=== PATIENT | male | born 1955 | race Caucasian/White ===

== ENCOUNTER 2021-04-01 18:50 | Inpatient (IN) ==
[2021-04-01] MEDS ORDERED: Isovue-370 500 ML BOTTLE IVP ONE (18:59)
[2021-04-01 19:54] LABS: Basophils # 0.1 K/mcL (0.0-0.2); Basophils % 1.1 %; Eosinophils % 0.4 %; Hematocrit 42.4 % (37.5-50.1); Hemoglobin 14.8 g/dL (12.9-16.9); Immature Granulocytes % 4.5 % (0-4); Lymphocytes # 1.3 K/mcL (0.6-4.6); Lymphocytes % 12.2 %; Mean Corpuscular HGB Conc 34.9 g/dL (31.6-35.5); Mean Corpuscular Hemoglobin 29.2 pg (28.0-33.3); Mean Corpuscular Volume 83.6 fL (83.0-100.0); Mean Platelet Volume 10.4 fL (9.4-12.4); Monocytes # 1.1 K/mcL (0.0-1.3); Monocytes % 10.7 %; Platelet Count 281 K/mcL (140-400); Red Blood Count 5.07 M/mcL (4.19-5.50); Red Cell Distribution Width 12.3 % (11.5-14.5); Segmented Neutrophils % 71.1 %
[2021-04-01 19:55] LABS: Neutrophils # 7.5 K/mcL (1.6-8.9); White Blood Count 10.5 K/mcL (4.3-11.1)
[2021-04-01 20:04] LABS: Fibrinogen 479 mg/dL (169-393)
[2021-04-01 20:15] LABS: D-Dimer 13850 ng/mLFEU (0-500)
[2021-04-01 20:16] LABS: Alanine Aminotransferase 32 Units/L (7-52); Albumin 3.8 g/dL (3.5-5.7); Albumin/Globulin Ratio 1.2 (1.1-2.2); Alkaline Phosphatase 75 Units/L (34-104); Aspartate Amino Transferase 48 Units/L (13-39); BUN/Creatinine Ratio 21 (6-26); Bilirubin,Direct 0.4 mg/dL (0.0-0.2); Bilirubin,Indirect 1.1 mg/dL (0.0-1.0); Bilirubin,Total 1.5 mg/dL (0.3-1.0); Blood Urea Nitrogen 17 mg/dL (8-23); Calcium 9.3 mg/dL (8.6-10.3); Carbon Dioxide 24 mEq/L (23-29); Chloride 100 mEq/L (98-107); Globulin 3.3 g/dL (2.4-3.5); Glucose 252 mg/dL (70-105); Lactate Dehydrogenase 468 Units/L (140-271); Osmolality,Calculated 296 (280-300); Potassium 3.1 mEq/L (3.5-5.1); Sodium 138 mEq/L (136-145); Total Protein 7.1 g/dL (6.4-8.9); eGFR For African Americans > 60 (> 60); eGFR For Non-African Americans > 60 (> 60)
[2021-04-01 20:33] LABS: Ferritin 888 ng/mL (20-250)
[2021-04-01 21:03] LABS: Troponin I 1.26 ng/mL (< 0.04)
[2021-04-01] MEDS ORDERED: *HR* Heparin 5,000 UNIT/ML VIAL IVP ONE (23:03)
[2021-04-01] MEDS ORDERED: *HR* Heparin 5,000 UNIT/ML VIAL IVP PRN ×2 (23:03)
[2021-04-01] MEDS ORDERED: *HR* Promethazine 25 MG/ML VIAL IM PRN (23:20)
[2021-04-01] MEDS ORDERED: Ondansetron 4 MG/2 ML VIAL IVP PRN (23:20)
[2021-04-01] MEDS ORDERED: Acetaminophen 325 MG TABLET PO PRN (23:20)
[2021-04-01] MEDS ORDERED: Naloxone 0.4 MG/ML INJ IVP PRN (23:20)
[2021-04-01] MEDS ORDERED: Remdesivir 200 MG in 0.9 % Sodium Chloride 100 ML IVPB ONE (23:23)
[2021-04-01] MEDS ORDERED: Perflutren Lipid Microsphere 1.3 ML in 0.9 % Sodium Chloride 8.7 ML IVP PRN (23:27)
[2021-04-01] MEDS: Heparin 25,000UNIT/250ML 1/2NS 25,000 UNIT/250 ML IV.SOLN IVC SCH (23:51)
[2021-04-02 00:21] LABS: INR 1.2; Prothrombin Time 13.9 Seconds (9.4-12.1)
[2021-04-02 00:24] LABS: Heparin anti-factor XA UFH < 0.04 IU/mL (0.30-0.70)
[2021-04-02 05:39] LABS: Basophils # 0.1 K/mcL (0.0-0.2); Basophils % 0.8 %; Eosinophils % 0.4 %; Hematocrit 40.5 % (37.5-50.1); Hemoglobin 14.3 g/dL (12.9-16.9); Immature Granulocytes % 4.3 % (0-4); Lymphocytes # 1.2 K/mcL (0.6-4.6); Lymphocytes % 10.6 %; Mean Corpuscular HGB Conc 35.3 g/dL (31.6-35.5); Mean Corpuscular Hemoglobin 29.7 pg (28.0-33.3); Mean Corpuscular Volume 84.2 fL (83.0-100.0); Mean Platelet Volume 10.1 fL (9.4-12.4); Monocytes # 1.2 K/mcL (0.0-1.3); Monocytes % 10.8 %; Neutrophils # 8.3 K/mcL (1.6-8.9); Platelet Count 267 K/mcL (140-400); Red Blood Count 4.81 M/mcL (4.19-5.50); Red Cell Distribution Width 12.2 % (11.5-14.5); Segmented Neutrophils % 73.1 %; White Blood Count 11.4 K/mcL (4.3-11.1)
[2021-04-02 05:45] LABS: Fibrinogen 441 mg/dL (169-393)
[2021-04-02 05:54] LABS: D-Dimer 23001 ng/mLFEU (0-500)
[2021-04-02 06:07] LABS: Alanine Aminotransferase 32 Units/L (7-52); Albumin 3.6 g/dL (3.5-5.7); Albumin/Globulin Ratio 1.2 (1.1-2.2); Alkaline Phosphatase 71 Units/L (34-104); Aspartate Amino Transferase 59 Units/L (13-39); BUN/Creatinine Ratio 25 (6-26); Bilirubin,Direct 0.4 mg/dL (0.0-0.2); Bilirubin,Indirect 1.1 mg/dL (0.0-1.0); Bilirubin,Total 1.5 mg/dL (0.3-1.0); Blood Urea Nitrogen 16 mg/dL (8-23); C-Reactive Protein 73 mg/L (Less than 10); Calcium 8.7 mg/dL (8.6-10.3); Carbon Dioxide 21 mEq/L (23-29); Chloride 104 mEq/L (98-107); Globulin 3.1 g/dL (2.4-3.5); Glucose 191 mg/dL (70-105); Lactate Dehydrogenase 502 Units/L (140-271); Osmolality,Calculated 292 (280-300); Phosphorous 3.2 mg/dL (2.7-4.5); Potassium 3.2 mEq/L (3.5-5.1); Sodium 138 mEq/L (136-145); Total Protein 6.7 g/dL (6.4-8.9); eGFR For African Americans > 60 (> 60); eGFR For Non-African Americans > 60 (> 60)
[2021-04-02 06:13] LABS: Ferritin 890 ng/mL (20-250)
[2021-04-02] MEDS: Aspirin Enteric Coated 81 MG Tablet PO SCH (08:06)
[2021-04-02] MEDS ORDERED: Dexamethasone Sodium Phos/PF 10 MG/ML VIAL IVP SCH (09:00)
[2021-04-02 10:23] LABS: Estimated Average Glucose 154 mg/dl
[2021-04-02 12:31] LABS: ABG Base Excess 0 mEq/L (-2 to 3); ABG HCO3 23 mEq/L (21-27); ABG Oxygen Saturation 95 % (95-98); ABG PCO2 32 mmHg (35-45); ABG PH 7.47 pH Units (7.32-7.45); ABG PO2 67 mmHg (85-104); ABG TCO2 24 mEq/L (20-26)
[2021-04-02] MEDS: Ipratropium 1 PUFF INHALER IH SCH ×2 (15:05→20:00)
[2021-04-02 15:12] LABS: ABG Base Excess 0 mEq/L (-2 to 3); ABG HCO3 23 mEq/L (21-27); ABG Oxygen Saturation 91 % (95-98); ABG PCO2 32 mmHg (35-45); ABG PH 7.47 pH Units (7.32-7.45); ABG PO2 56 mmHg (85-104); ABG TCO2 24 mEq/L (20-26)
[2021-04-02] MEDS ORDERED: Dexamethasone Sodium Phos/PF 10 MG/ML VIAL IVP ONE (15:56)
[2021-04-02] MEDS ORDERED: TOCILIZUMAB 810 MG in 0.9 % Sodium Chloride 95.5 ML IVPB ONE (16:00)
[2021-04-02] MEDS: *HR* HYDROcodone/Acet 5/325 mg TABLET PO PRN (20:26)
[2021-04-02] MEDS: Heparin 25,000UNIT/250ML 1/2NS 25,000 UNIT/250 ML IV.SOLN IVC SCH (20:26)
[2021-04-02] MEDS: BuPROPion SR (12 HR) 150 MG TABLET PO SCH (20:26)
[2021-04-02] MEDS: Melatonin 3 MG TABLET PO PRN (20:26)
[2021-04-03] MEDS: Ipratropium 1 PUFF INHALER IH SCH ×6 (00:11→20:23)
[2021-04-03] MEDS: Remdesivir 100 MG in 0.9 % Sodium Chloride 100 ML IVPB SCH ×2 (01:05→23:39)
[2021-04-03 06:19] LABS: Hemoglobin 13.3 g/dL (12.9-16.9); Mean Corpuscular HGB Conc 34.1 g/dL (31.6-35.5); Mean Corpuscular Hemoglobin 29.2 pg (28.0-33.3); Mean Corpuscular Volume 85.5 fL (83.0-100.0); Mean Platelet Volume 10.8 fL (9.4-12.4); Platelet Count 311 K/mcL (140-400); Red Blood Count 4.56 M/mcL (4.19-5.50); Red Cell Distribution Width 12.5 % (11.5-14.5); White Blood Count 10.1 K/mcL (4.3-11.1)
[2021-04-03 06:40] LABS: Albumin 3.6 g/dL (3.5-5.7); Albumin/Globulin Ratio 1.3 (1.1-2.2); Bilirubin,Direct 0.3 mg/dL (0.0-0.2); Bilirubin,Indirect 0.8 mg/dL (0.0-1.0); Bilirubin,Total 1.1 mg/dL (0.3-1.0); Globulin 2.8 g/dL (2.4-3.5); Total Protein 6.4 g/dL (6.4-8.9)
[2021-04-03 06:41] LABS: BUN/Creatinine Ratio 39 (6-26); Blood Urea Nitrogen 27 mg/dL (8-23); Calcium 9.1 mg/dL (8.6-10.3); Carbon Dioxide 24 mEq/L (23-29); Chloride 104 mEq/L (98-107); Glucose 226 mg/dL (70-105); Osmolality,Calculated 298 (280-300); Potassium 3.7 mEq/L (3.5-5.1); Sodium 138 mEq/L (136-145); eGFR For African Americans > 60 (> 60); eGFR For Non-African Americans > 60 (> 60)
[2021-04-03 06:50] LABS: Anisocytosis 1+ (Not Present); Lymphocytes # 1.6 K/mcL (0.6-4.6); Monocytes # 0.6 K/mcL (0.0-1.3); Neutrophils # 7.3 K/mcL (1.6-8.9); Platelet Estimate Normal (Normal); Poikilocytosis 1+ (Not Present); Reactive Lymphocytes Present (Not Present); Smudge Cells Present (Not Present)
[2021-04-03] MEDS: Aspirin Enteric Coated 81 MG Tablet PO SCH (08:13)
[2021-04-03] MEDS: BuPROPion SR (12 HR) 150 MG TABLET PO SCH ×2 (08:13→23:37)
[2021-04-03] MEDS: Cholecalciferol (D-3) 1,000 UNIT (25MCG) TABLET PO SCH ×2 (08:15→08:16)
[2021-04-03] MEDS: Dexamethasone Sodium Phos/PF 10 MG/ML VIAL IVP SCH (08:17)
[2021-04-03] MEDS: Heparin 25,000UNIT/250ML 1/2NS 25,000 UNIT/250 ML IV.SOLN IVC SCH (14:08)
[2021-04-03 17:59] LABS: C-Reactive Protein 85 mg/L (Less than 10)
[2021-04-04 02:50] LABS: Hematocrit 37.4 % (37.5-50.1); Hemoglobin 13.2 g/dL (12.9-16.9); Mean Corpuscular HGB Conc 35.3 g/dL (31.6-35.5); Mean Corpuscular Hemoglobin 29.9 pg (28.0-33.3); Mean Corpuscular Volume 84.8 fL (83.0-100.0); Mean Platelet Volume 10.5 fL (9.4-12.4); Platelet Count 347 K/mcL (140-400); Red Blood Count 4.41 M/mcL (4.19-5.50); Red Cell Distribution Width 12.5 % (11.5-14.5); White Blood Count 13.6 K/mcL (4.3-11.1)
[2021-04-04] MEDS: Ipratropium 1 PUFF INHALER IH SCH ×6 (02:54→20:29)
[2021-04-04 03:10] LABS: Albumin 3.3 g/dL (3.5-5.7); Albumin/Globulin Ratio 1.2 (1.1-2.2); Bilirubin,Direct 0.2 mg/dL (0.0-0.2); Bilirubin,Indirect 0.4 mg/dL (0.0-1.0); Bilirubin,Total 0.6 mg/dL (0.3-1.0); Globulin 2.8 g/dL (2.4-3.5); Total Protein 6.1 g/dL (6.4-8.9)
[2021-04-04] MEDS: *HR* Enoxaparin 40 MG/0.4 ML SYRINGE SQ SCH (06:00)
[2021-04-04] MEDS: Cholecalciferol (D-3) 1,000 UNIT (25MCG) TABLET PO SCH (07:52)
[2021-04-04] MEDS: Aspirin Enteric Coated 81 MG Tablet PO SCH (07:53)
[2021-04-04] MEDS: BuPROPion SR (12 HR) 150 MG TABLET PO SCH ×2 (07:53→22:22)
[2021-04-04] MEDS: Dexamethasone Sodium Phos/PF 10 MG/ML VIAL IVP SCH (15:58)
[2021-04-04] MEDS: Remdesivir 100 MG in 0.9 % Sodium Chloride 100 ML IVPB SCH (22:23)
[2021-04-05] MEDS: Ipratropium 1 PUFF INHALER IH SCH ×7 (01:12→23:21)
[2021-04-05] MEDS: *HR* Enoxaparin 40 MG/0.4 ML SYRINGE SQ SCH (06:57)
[2021-04-05 08:00] LABS: Albumin 3.4 g/dL (3.5-5.7); Albumin/Globulin Ratio 1.5 (1.1-2.2); Bilirubin,Direct 0.3 mg/dL (0.0-0.2); Bilirubin,Indirect 0.8 mg/dL (0.0-1.0); Bilirubin,Total 1.1 mg/dL (0.3-1.0); Globulin 2.3 g/dL (2.4-3.5); Total Protein 5.7 g/dL (6.4-8.9)
[2021-04-05 08:10] LABS: Blood Urea Nitrogen 23 mg/dL (8-23); Calcium 8.5 mg/dL (8.6-10.3); Carbon Dioxide 25 mEq/L (23-29); Chloride 105 mEq/L (98-107); Glucose 182 mg/dL (70-105); Lactate Dehydrogenase 455 Units/L (140-271); Osmolality,Calculated 296 (280-300); Potassium 3.9 mEq/L (3.5-5.1); Sodium 139 mEq/L (136-145)
[2021-04-05 08:20] LABS: Ferritin 1157 ng/mL (20-250)
[2021-04-05 08:26] LABS: Basophils % 0.6 %; Eosinophils # 0.3 K/mcL (0.0-0.6); Eosinophils % 4.5 %; Hematocrit 41.5 % (37.5-50.1); Hemoglobin 14.3 g/dL (12.9-16.9); Immature Granulocytes % 2.1 % (0-4); Lymphocytes # 0.8 K/mcL (0.6-4.6); Lymphocytes % 11.4 %; Mean Corpuscular HGB Conc 34.5 g/dL (31.6-35.5); Mean Corpuscular Hemoglobin 29.5 pg (28.0-33.3); Mean Corpuscular Volume 85.6 fL (83.0-100.0); Mean Platelet Volume 10.5 fL (9.4-12.4); Monocytes # 0.6 K/mcL (0.0-1.3); Monocytes % 9.4 %; Neutrophils # 4.9 K/mcL (1.6-8.9); Platelet Count 308 K/mcL (140-400); Red Blood Count 4.85 M/mcL (4.19-5.50); Red Cell Distribution Width 12.9 % (11.5-14.5); White Blood Count 6.8 K/mcL (4.3-11.1)
[2021-04-05 08:34] LABS: Fibrinogen 157 mg/dL (169-393)
[2021-04-05 08:40] LABS: BUN/Creatinine Ratio 29 (6-26); C-Reactive Protein 11 mg/L (Less than 10); eGFR For African Americans > 60 (> 60); eGFR For Non-African Americans > 60 (> 60)
[2021-04-05 09:24] LABS: D-Dimer 46998 ng/mLFEU (0-500)
[2021-04-05] MEDS: BuPROPion SR (12 HR) 150 MG TABLET PO SCH ×2 (10:37→22:22)
[2021-04-05] MEDS: Aspirin Enteric Coated 81 MG Tablet PO SCH (10:37)
[2021-04-05] MEDS: Cholecalciferol (D-3) 1,000 UNIT (25MCG) TABLET PO SCH (10:43)
[2021-04-05] MEDS: Dexamethasone Sodium Phos/PF 10 MG/ML VIAL IVP SCH (13:10)
[2021-04-05] MEDS ORDERED: *HR* Enoxaparin 40 MG/0.4 ML SYRINGE SQ ONE (13:20)
[2021-04-05] MEDS ORDERED: Isovue-370 500 ML BOTTLE IVP ONE (13:21)
[2021-04-05] MEDS: Benzonatate 100 MG CAPSULE PO PRN (22:23)
[2021-04-05] MEDS: Melatonin 3 MG TABLET PO PRN (22:23)
[2021-04-05] MEDS: *HR* Enoxaparin 80 MG/0.8 ML SYRINGE SQ SCH (22:24)
[2021-04-06] MEDS: Remdesivir 100 MG in 0.9 % Sodium Chloride 100 ML IVPB SCH (01:27)
[2021-04-06] MEDS: Ipratropium 1 PUFF INHALER IH SCH ×6 (03:49→23:42)
[2021-04-06 06:39] LABS: Basophils # 0.1 K/mcL (0.0-0.2); Basophils % 0.4 %; Eosinophils % 0.3 %; Hematocrit 44.3 % (37.5-50.1); Immature Granulocytes % 1.3 % (0-4); Lymphocytes % 8.7 %; Mean Corpuscular HGB Conc 33.9 g/dL (31.6-35.5); Mean Corpuscular Hemoglobin 29.4 pg (28.0-33.3); Mean Corpuscular Volume 86.7 fL (83.0-100.0); Mean Platelet Volume 10.3 fL (9.4-12.4); Monocytes # 0.9 K/mcL (0.0-1.3); Monocytes % 7.8 %; Neutrophils # 9.7 K/mcL (1.6-8.9); Platelet Count 327 K/mcL (140-400); Red Blood Count 5.11 M/mcL (4.19-5.50); Segmented Neutrophils % 81.5 %
[2021-04-06 06:40] LABS: White Blood Count 11.9 K/mcL (4.3-11.1)
[2021-04-06 06:59] LABS: Alanine Aminotransferase 27 Units/L (7-52); Albumin/Globulin Ratio 1.6 (1.1-2.2); Alkaline Phosphatase 84 Units/L (34-104); Aspartate Amino Transferase 39 Units/L (13-39); BUN/Creatinine Ratio 27 (6-26); Bilirubin,Direct 0.4 mg/dL (0.0-0.2); Bilirubin,Total 1.4 mg/dL (0.3-1.0); Blood Urea Nitrogen 24 mg/dL (8-23); Calcium 9.5 mg/dL (8.6-10.3); Carbon Dioxide 26 mEq/L (23-29); Chloride 102 mEq/L (98-107); Globulin 2.5 g/dL (2.4-3.5); Glucose 219 mg/dL (70-105); Osmolality,Calculated 299 (280-300); Potassium 4.1 mEq/L (3.5-5.1); Sodium 139 mEq/L (136-145); Total Protein 6.5 g/dL (6.4-8.9); eGFR For African Americans > 60 (> 60); eGFR For Non-African Americans > 60 (> 60)
[2021-04-06] MEDS: Cholecalciferol (D-3) 1,000 UNIT (25MCG) TABLET PO SCH (10:00)
[2021-04-06] MEDS: BuPROPion SR (12 HR) 150 MG TABLET PO SCH ×2 (10:01→20:39)
[2021-04-06] MEDS: Aspirin Enteric Coated 81 MG Tablet PO SCH (10:02)
[2021-04-06] MEDS: Dexamethasone Sodium Phos/PF 10 MG/ML VIAL IVP SCH (10:03)
[2021-04-06] MEDS: *HR* Enoxaparin 80 MG/0.8 ML SYRINGE SQ SCH (10:05)
[2021-04-06] MEDS: Benzonatate 100 MG CAPSULE PO PRN (20:39)
[2021-04-06] MEDS: Apixaban 5 MG TABLET PO SCH (20:39)
[2021-04-06] MEDS: Melatonin 3 MG TABLET PO PRN (20:39)
[2021-04-07] MEDS: Ipratropium 1 PUFF INHALER IH SCH ×6 (03:38→22:51)
[2021-04-07 06:49] LABS: Basophils # 0.1 K/mcL (0.0-0.2); Basophils % 0.5 %; Eosinophils # 0.1 K/mcL (0.0-0.6); Eosinophils % 0.7 %; Hematocrit 42.9 % (37.5-50.1); Hemoglobin 14.7 g/dL (12.9-16.9); Immature Granulocytes % 1.3 % (0-4); Lymphocytes # 1.5 K/mcL (0.6-4.6); Lymphocytes % 10.4 %; Mean Corpuscular HGB Conc 34.3 g/dL (31.6-35.5); Mean Corpuscular Hemoglobin 29.3 pg (28.0-33.3); Mean Corpuscular Volume 85.6 fL (83.0-100.0); Mean Platelet Volume 10.4 fL (9.4-12.4); Monocytes # 1.1 K/mcL (0.0-1.3); Monocytes % 7.2 %; Neutrophils # 11.6 K/mcL (1.6-8.9); Platelet Count 312 K/mcL (140-400); Red Blood Count 5.01 M/mcL (4.19-5.50); Segmented Neutrophils % 79.9 %; White Blood Count 14.6 K/mcL (4.3-11.1)
[2021-04-07 07:02] LABS: Fibrinogen 132 mg/dL (169-393)
[2021-04-07 07:09] LABS: BUN/Creatinine Ratio 34 (6-26); Blood Urea Nitrogen 30 mg/dL (8-23); Calcium 9.2 mg/dL (8.6-10.3); Carbon Dioxide 26 mEq/L (23-29); Chloride 103 mEq/L (98-107); Glucose 216 mg/dL (70-105); Lactate Dehydrogenase 448 Units/L (140-271); Osmolality,Calculated 297 (280-300); Sodium 137 mEq/L (136-145); eGFR For African Americans > 60 (> 60); eGFR For Non-African Americans > 60 (> 60)
[2021-04-07 07:10] LABS: D-Dimer 21110 ng/mLFEU (0-500)
[2021-04-07 07:27] LABS: Ferritin 1348 ng/mL (20-250)
[2021-04-07 08:30] LABS: C-Reactive Protein < 5 mg/L (Less than 10)
[2021-04-07] MEDS: Cholecalciferol (D-3) 1,000 UNIT (25MCG) TABLET PO SCH (09:35)
[2021-04-07] MEDS: Aspirin Enteric Coated 81 MG Tablet PO SCH (09:35)
[2021-04-07] MEDS: BuPROPion SR (12 HR) 150 MG TABLET PO SCH ×2 (09:36→21:45)
[2021-04-07] MEDS: Apixaban 5 MG TABLET PO SCH ×2 (09:36→21:45)
[2021-04-07] MEDS: Dexamethasone Sodium Phos/PF 10 MG/ML VIAL IVP SCH (10:27)
[2021-04-07] MEDS: Melatonin 3 MG TABLET PO PRN (21:46)
[2021-04-08 02:18] LABS: Basophils % 0.3 %; Eosinophils # 0.1 K/mcL (0.0-0.6); Eosinophils % 0.5 %; Hematocrit 44.1 % (37.5-50.1); Hemoglobin 15.1 g/dL (12.9-16.9); Lymphocytes # 1.7 K/mcL (0.6-4.6); Lymphocytes % 10.9 %; Mean Corpuscular HGB Conc 34.2 g/dL (31.6-35.5); Mean Corpuscular Hemoglobin 29.3 pg (28.0-33.3); Mean Corpuscular Volume 85.5 fL (83.0-100.0); Mean Platelet Volume 10.4 fL (9.4-12.4); Monocytes # 1.1 K/mcL (0.0-1.3); Monocytes % 7.2 %; Neutrophils # 12.2 K/mcL (1.6-8.9); Platelet Count 313 K/mcL (140-400); Red Blood Count 5.16 M/mcL (4.19-5.50); Segmented Neutrophils % 80.1 %; White Blood Count 15.2 K/mcL (4.3-11.1)
[2021-04-08 02:34] LABS: Alanine Aminotransferase 35 Units/L (7-52); Albumin 3.8 g/dL (3.5-5.7); Albumin/Globulin Ratio 1.4 (1.1-2.2); Alkaline Phosphatase 69 Units/L (34-104); Aspartate Amino Transferase 39 Units/L (13-39); BUN/Creatinine Ratio 30 (6-26); Blood Urea Nitrogen 29 mg/dL (8-23); Calcium 9.2 mg/dL (8.6-10.3); Carbon Dioxide 24 mEq/L (23-29); Chloride 102 mEq/L (98-107); Globulin 2.7 g/dL (2.4-3.5); Glucose 277 mg/dL (70-105); Osmolality,Calculated 298 (280-300); Potassium 4.5 mEq/L (3.5-5.1); Sodium 136 mEq/L (136-145); Total Protein 6.5 g/dL (6.4-8.9); eGFR For African Americans > 60 (> 60); eGFR For Non-African Americans > 60 (> 60)
[2021-04-08] MEDS: Ipratropium 1 PUFF INHALER IH SCH ×6 (04:38→23:34)
[2021-04-08] MEDS ORDERED: Dexamethasone Sodium Phos/PF 10 MG/ML VIAL IVP SCH (09:00)
[2021-04-08] MEDS: BuPROPion SR (12 HR) 150 MG TABLET PO SCH ×2 (09:46→23:04)
[2021-04-08] MEDS: Aspirin Enteric Coated 81 MG Tablet PO SCH (09:46)
[2021-04-08] MEDS: Cholecalciferol (D-3) 1,000 UNIT (25MCG) TABLET PO SCH (09:47)
[2021-04-08] MEDS: Apixaban 5 MG TABLET PO SCH ×2 (09:48→23:05)
[2021-04-08] MEDS: Dexamethasone Sodium Phos/PF 10 MG/ML VIAL IVP SCH (09:48)
[2021-04-08] MEDS: Furosemide 20 MG/2 ML VIAL IVP SCH (09:48)
[2021-04-09] MEDS: Ipratropium 1 PUFF INHALER IH SCH ×6 (03:28→23:24)
[2021-04-09 04:14] LABS: Basophils # 0.1 K/mcL (0.0-0.2); Basophils % 0.4 %; Eosinophils # 0.1 K/mcL (0.0-0.6); Eosinophils % 0.3 %; Hematocrit 48.6 % (37.5-50.1); Immature Granulocytes % 1.3 % (0-4); Lymphocytes # 2.6 K/mcL (0.6-4.6); Lymphocytes % 14.5 %; Mean Corpuscular HGB Conc 34.8 g/dL (31.6-35.5); Mean Corpuscular Hemoglobin 29.4 pg (28.0-33.3); Mean Corpuscular Volume 84.5 fL (83.0-100.0); Mean Platelet Volume 10.5 fL (9.4-12.4); Monocytes # 1.8 K/mcL (0.0-1.3); Monocytes % 9.8 %; Neutrophils # 13.4 K/mcL (1.6-8.9); Platelet Count 376 K/mcL (140-400); Red Blood Count 5.75 M/mcL (4.19-5.50); Red Cell Distribution Width 13.3 % (11.5-14.5); Segmented Neutrophils % 73.7 %; White Blood Count 18.1 K/mcL (4.3-11.1)
[2021-04-09 04:16] LABS: Hemoglobin 16.9 g/dL (12.9-16.9)
[2021-04-09 04:32] LABS: Fibrinogen 147 mg/dL (169-393)
[2021-04-09 04:33] LABS: D-Dimer 6785 ng/mLFEU (0-500)
[2021-04-09 04:36] LABS: Alanine Aminotransferase 44 Units/L (7-52); Albumin 4.2 g/dL (3.5-5.7); Albumin/Globulin Ratio 1.4 (1.1-2.2); Aspartate Amino Transferase 40 Units/L (13-39); BUN/Creatinine Ratio 45 (6-26); Bilirubin,Total 1.6 mg/dL (0.3-1.0); Blood Urea Nitrogen 40 mg/dL (8-23); C-Reactive Protein < 5 mg/L (Less than 10); Calcium 9.6 mg/dL (8.6-10.3); Carbon Dioxide 24 mEq/L (23-29); Chloride 101 mEq/L (98-107); Globulin 2.9 g/dL (2.4-3.5); Glucose 252 mg/dL (70-105); Lactate Dehydrogenase 415 Units/L (140-271); Osmolality,Calculated 306 (280-300); Potassium 4.2 mEq/L (3.5-5.1); Sodium 139 mEq/L (136-145); Total Protein 7.1 g/dL (6.4-8.9); eGFR For African Americans > 60 (> 60); eGFR For Non-African Americans > 60 (> 60)
[2021-04-09 04:41] LABS: Alkaline Phosphatase 72 Units/L (34-104)
[2021-04-09 05:06] LABS: Ferritin > 1500 ng/mL (20-250)
[2021-04-09] MEDS: BuPROPion SR (12 HR) 150 MG TABLET PO SCH ×2 (09:23→22:20)
[2021-04-09] MEDS: Apixaban 5 MG TABLET PO SCH ×2 (09:23→22:20)
[2021-04-09] MEDS: Cholecalciferol (D-3) 1,000 UNIT (25MCG) TABLET PO SCH (09:23)
[2021-04-09] MEDS: Furosemide 20 MG/2 ML VIAL IVP SCH (09:24)
[2021-04-09] MEDS: Dexamethasone Sodium Phos/PF 10 MG/ML VIAL IVP SCH (09:24)
[2021-04-10] MEDS: Ipratropium 1 PUFF INHALER IH SCH ×6 (04:23→23:49)
[2021-04-10 04:43] LABS: Basophils # 0.1 K/mcL (0.0-0.2); Basophils % 0.3 %; Eosinophils % 0.2 %; Hematocrit 50.5 % (37.5-50.1); Hemoglobin 17.7 g/dL (12.9-16.9); Immature Granulocytes % 1.9 % (0-4); Lymphocytes # 2.2 K/mcL (0.6-4.6); Lymphocytes % 13.9 %; Mean Corpuscular Hemoglobin 29.9 pg (28.0-33.3); Mean Corpuscular Volume 85.3 fL (83.0-100.0); Monocytes # 1.7 K/mcL (0.0-1.3); Monocytes % 10.7 %; Neutrophils # 11.7 K/mcL (1.6-8.9); Platelet Count 368 K/mcL (140-400); Red Blood Count 5.92 M/mcL (4.19-5.50); Red Cell Distribution Width 13.3 % (11.5-14.5)
[2021-04-10 04:53] LABS: Alanine Aminotransferase 38 Units/L (7-52); Albumin 4.4 g/dL (3.5-5.7); Albumin/Globulin Ratio 1.6 (1.1-2.2); Alkaline Phosphatase 73 Units/L (34-104); Aspartate Amino Transferase 28 Units/L (13-39); Bilirubin,Total 2.1 mg/dL (0.3-1.0); Carbon Dioxide 24 mEq/L (23-29); Chloride 100 mEq/L (98-107); Globulin 2.7 g/dL (2.4-3.5); Glucose 347 mg/dL (70-105); Potassium 4.6 mEq/L (3.5-5.1); Sodium 136 mEq/L (136-145); Total Protein 7.1 g/dL (6.4-8.9); eGFR For African Americans > 60 (> 60); eGFR For Non-African Americans > 60 (> 60)
[2021-04-10 05:02] LABS: BUN/Creatinine Ratio 56 (6-26); Blood Urea Nitrogen 59 mg/dL (8-23); Calcium 10.2 mg/dL (8.6-10.3); Osmolality,Calculated 312 (280-300)
[2021-04-10] MEDS: Cholecalciferol (D-3) 1,000 UNIT (25MCG) TABLET PO SCH (10:11)
[2021-04-10] MEDS: Apixaban 5 MG TABLET PO SCH ×2 (10:12→19:52)
[2021-04-10] MEDS: Dexamethasone Sodium Phos/PF 10 MG/ML VIAL IVP SCH (10:13)
[2021-04-10] MEDS: BuPROPion SR (12 HR) 150 MG TABLET PO SCH ×2 (10:13→19:51)
[2021-04-10] MEDS: Furosemide 20 MG/2 ML VIAL IVP SCH (10:13)
[2021-04-11] MEDS: Ipratropium 1 PUFF INHALER IH SCH ×6 (04:25→23:09)
[2021-04-11 05:02] LABS: Basophils % 0.2 %; Eosinophils % 0.2 %; Hematocrit 50.7 % (37.5-50.1); Hemoglobin 17.9 g/dL (12.9-16.9); Immature Granulocytes % 1.4 % (0-4); Lymphocytes % 11.6 %; Mean Corpuscular HGB Conc 35.3 g/dL (31.6-35.5); Mean Corpuscular Hemoglobin 29.9 pg (28.0-33.3); Mean Corpuscular Volume 84.8 fL (83.0-100.0); Monocytes # 1.7 K/mcL (0.0-1.3); Monocytes % 9.9 %; Neutrophils # 12.9 K/mcL (1.6-8.9); Platelet Count 398 K/mcL (140-400); Red Blood Count 5.98 M/mcL (4.19-5.50); Red Cell Distribution Width 13.3 % (11.5-14.5); Segmented Neutrophils % 76.7 %; White Blood Count 16.9 K/mcL (4.3-11.1)
[2021-04-11 05:18] LABS: Alanine Aminotransferase 30 Units/L (7-52); Albumin 4.4 g/dL (3.5-5.7); Albumin/Globulin Ratio 1.6 (1.1-2.2); Alkaline Phosphatase 72 Units/L (34-104); Aspartate Amino Transferase 20 Units/L (13-39); BUN/Creatinine Ratio 58 (6-26); Bilirubin,Total 2.8 mg/dL (0.3-1.0); Blood Urea Nitrogen 61 mg/dL (8-23); Calcium 10.4 mg/dL (8.6-10.3); Carbon Dioxide 25 mEq/L (23-29); Chloride 98 mEq/L (98-107); Globulin 2.7 g/dL (2.4-3.5); Glucose 353 mg/dL (70-105); Osmolality,Calculated 309 (280-300); Potassium 4.3 mEq/L (3.5-5.1); Sodium 134 mEq/L (136-145); Total Protein 7.1 g/dL (6.4-8.9); eGFR For African Americans > 60 (> 60); eGFR For Non-African Americans > 60 (> 60)
[2021-04-11] MEDS: Dexamethasone Sodium Phos/PF 10 MG/ML VIAL IVP SCH (08:30)
[2021-04-11] MEDS: Apixaban 5 MG TABLET PO SCH ×2 (08:31→20:34)
[2021-04-11] MEDS: BuPROPion SR (12 HR) 150 MG TABLET PO SCH ×2 (08:32→20:34)
[2021-04-11] MEDS: Cholecalciferol (D-3) 1,000 UNIT (25MCG) TABLET PO SCH (08:35)
[2021-04-12] MEDS: Ipratropium 1 PUFF INHALER IH SCH ×5 (04:11→20:23)
[2021-04-12 07:40] LABS: Basophils % 0.3 %; Eosinophils # 0.1 K/mcL (0.0-0.6); Eosinophils % 0.5 %; Hematocrit 48.8 % (37.5-50.1); Lymphocytes # 2.3 K/mcL (0.6-4.6); Lymphocytes % 15.4 %; Mean Corpuscular HGB Conc 34.8 g/dL (31.6-35.5); Mean Corpuscular Hemoglobin 29.7 pg (28.0-33.3); Mean Corpuscular Volume 85.2 fL (83.0-100.0); Monocytes # 1.3 K/mcL (0.0-1.3); Monocytes % 9.1 %; Neutrophils # 10.8 K/mcL (1.6-8.9); Platelet Count 360 K/mcL (140-400); Red Blood Count 5.73 M/mcL (4.19-5.50); Red Cell Distribution Width 13.2 % (11.5-14.5); Segmented Neutrophils % 73.7 %; White Blood Count 14.7 K/mcL (4.3-11.1)
[2021-04-12 07:48] LABS: Fibrinogen 150 mg/dL (169-393)
[2021-04-12 07:51] LABS: D-Dimer 3500 ng/mLFEU (0-500)
[2021-04-12 08:03] LABS: Alanine Aminotransferase 23 Units/L (7-52); Albumin 4.2 g/dL (3.5-5.7); Albumin/Globulin Ratio 1.7 (1.1-2.2); Alkaline Phosphatase 65 Units/L (34-104); Aspartate Amino Transferase 20 Units/L (13-39); BUN/Creatinine Ratio 58 (6-26); Bilirubin,Total 3.2 mg/dL (0.3-1.0); Blood Urea Nitrogen 54 mg/dL (8-23); Calcium 9.8 mg/dL (8.6-10.3); Carbon Dioxide 24 mEq/L (23-29); Chloride 99 mEq/L (98-107); Globulin 2.5 g/dL (2.4-3.5); Glucose 296 mg/dL (70-105); Osmolality,Calculated 304 (280-300); Sodium 134 mEq/L (136-145); Total Protein 6.7 g/dL (6.4-8.9); eGFR For African Americans > 60 (> 60); eGFR For Non-African Americans > 60 (> 60)
[2021-04-12 08:07] LABS: Lactate Dehydrogenase 315 Units/L (140-271)
[2021-04-12 08:40] LABS: Ferritin > 1500 ng/mL (20-250)
[2021-04-12] MEDS ORDERED: Dexamethasone Sodium Phos/PF 10 MG/ML VIAL IVP SCH (09:00)
[2021-04-12 09:28] LABS: C-Reactive Protein < 5 mg/L (Less than 10)
[2021-04-12] MEDS: Cholecalciferol (D-3) 1,000 UNIT (25MCG) TABLET PO SCH (09:55)
[2021-04-12] MEDS: Apixaban 5 MG TABLET PO SCH ×2 (09:55→19:45)
[2021-04-12] MEDS: BuPROPion SR (12 HR) 150 MG TABLET PO SCH ×2 (09:55→19:45)
[2021-04-13] MEDS: Ipratropium 1 PUFF INHALER IH SCH ×7 (00:18→22:59)
[2021-04-13 08:06] LABS: Basophils % 0.2 %; Eosinophils # 0.1 K/mcL (0.0-0.6); Eosinophils % 0.4 %; Hemoglobin 16.6 g/dL (12.9-16.9); Immature Granulocytes % 1.1 % (0-4); Lymphocytes # 1.7 K/mcL (0.6-4.6); Mean Corpuscular HGB Conc 35.3 g/dL (31.6-35.5); Mean Corpuscular Hemoglobin 29.8 pg (28.0-33.3); Mean Corpuscular Volume 84.4 fL (83.0-100.0); Mean Platelet Volume 11.2 fL (9.4-12.4); Monocytes # 1.6 K/mcL (0.0-1.3); Monocytes % 8.6 %; Neutrophils # 15.5 K/mcL (1.6-8.9); Platelet Count 325 K/mcL (140-400); Red Blood Count 5.57 M/mcL (4.19-5.50); Red Cell Distribution Width 13.2 % (11.5-14.5); Segmented Neutrophils % 80.7 %; White Blood Count 19.2 K/mcL (4.3-11.1)
[2021-04-13 08:25] LABS: Alanine Aminotransferase 24 Units/L (7-52); Albumin/Globulin Ratio 1.7 (1.1-2.2); Alkaline Phosphatase 62 Units/L (34-104); Aspartate Amino Transferase 20 Units/L (13-39); BUN/Creatinine Ratio 47 (6-26); Bilirubin,Total 2.6 mg/dL (0.3-1.0); Blood Urea Nitrogen 47 mg/dL (8-23); Calcium 9.5 mg/dL (8.6-10.3); Carbon Dioxide 22 mEq/L (23-29); Chloride 98 mEq/L (98-107); Globulin 2.3 g/dL (2.4-3.5); Glucose 385 mg/dL (70-105); Osmolality,Calculated 302 (280-300); Potassium 4.1 mEq/L (3.5-5.1); Sodium 132 mEq/L (136-145); Total Protein 6.3 g/dL (6.4-8.9); eGFR For African Americans > 60 (> 60); eGFR For Non-African Americans > 60 (> 60)
[2021-04-13] MEDS: BuPROPion SR (12 HR) 150 MG TABLET PO SCH ×2 (09:06→20:54)
[2021-04-13] MEDS: dexAMETHasone 4 MG TABLET PO SCH (09:07)
[2021-04-13] MEDS: Apixaban 5 MG TABLET PO SCH (09:07)
[2021-04-13] MEDS: Cholecalciferol (D-3) 1,000 UNIT (25MCG) TABLET PO SCH (09:08)
[2021-04-13] MEDS: *HR* HYDROcodone/Acet 5/325 mg TABLET PO PRN ×3 (09:09→21:04)
[2021-04-13] MEDS ORDERED: Apixaban 5 MG TABLET PO SCH (21:00)
[2021-04-13] MEDS: Melatonin 3 MG TABLET PO PRN (21:04)
[2021-04-14 00:49] LABS: Red Cell Distribution Width 13.2 % (11.5-14.5)
[2021-04-14 00:50] LABS: Hematocrit 46.5 % (37.5-50.1); Hemoglobin 16.6 g/dL (12.9-16.9); Mean Corpuscular HGB Conc 35.7 g/dL (31.6-35.5); Mean Corpuscular Hemoglobin 30.3 pg (28.0-33.3); Mean Corpuscular Volume 84.9 fL (83.0-100.0); Mean Platelet Volume 11.2 fL (9.4-12.4); Platelet Count 287 K/mcL (140-400); Red Blood Count 5.48 M/mcL (4.19-5.50)
[2021-04-14 00:56] LABS: White Blood Count 38.6 K/mcL (4.3-11.1)
[2021-04-14 01:13] LABS: Alanine Aminotransferase 23 Units/L (7-52); Albumin/Globulin Ratio 1.6 (1.1-2.2); Alkaline Phosphatase 73 Units/L (34-104); Aspartate Amino Transferase 21 Units/L (13-39); BUN/Creatinine Ratio 43 (6-26); Bilirubin,Total 3.4 mg/dL (0.3-1.0); Blood Urea Nitrogen 39 mg/dL (8-23); C-Reactive Protein < 5 mg/L (Less than 10); Calcium 9.5 mg/dL (8.6-10.3); Carbon Dioxide 22 mEq/L (23-29); Chloride 97 mEq/L (98-107); Globulin 2.5 g/dL (2.4-3.5); Glucose 324 mg/dL (70-105); Lactate Dehydrogenase 306 Units/L (140-271); Osmolality,Calculated 294 (280-300); Potassium 4.2 mEq/L (3.5-5.1); Sodium 131 mEq/L (136-145); Total Protein 6.5 g/dL (6.4-8.9); eGFR For African Americans > 60 (> 60); eGFR For Non-African Americans > 60 (> 60)
[2021-04-14] MEDS ORDERED: Morphine Sulfate 2 MG/ML SYRINGE IVP ONE ×2 (01:31→01:38)
[2021-04-14 01:34] LABS: Ferritin > 1500 ng/mL (20-250)
[2021-04-14] MEDS ORDERED: *HR* LORazepam 2 MG/ML VIAL IVP ONE (01:46)
[2021-04-14 01:47] LABS: Lymphocytes # 1.9 K/mcL (0.6-4.6); Monocytes # 0.4 K/mcL (0.0-1.3); Neutrophils # 36.3 K/mcL (1.6-8.9); Platelet Estimate Normal (Normal)
[2021-04-14] MEDS ORDERED: Isovue-370 500 ML BOTTLE IVP ONE (01:53)
[2021-04-14 02:18] LABS: ABG Base Excess -1 mEq/L (-2 to 3); ABG HCO3 22 mEq/L (21-27); ABG Oxygen Saturation 82 % (95-98); ABG PCO2 30 mmHg (35-45); ABG PH 7.46 pH Units (7.32-7.45); ABG PO2 43 mmHg (85-104); ABG TCO2 23 mEq/L (20-26); Blood Gas Modality BiLevel; Blood Gas Pressure Support 8 cm H2O
[2021-04-14] MEDS ORDERED: Dexamethasone Sodium Phos/PF 10 MG/ML VIAL IVP ONE (02:40)
[2021-04-14] MEDS ORDERED: Furosemide 20 MG/2 ML VIAL IVP ONE (02:40)
[2021-04-14 03:04] LABS: Fibrinogen 190 mg/dL (169-393)
[2021-04-14 03:23] LABS: D-Dimer 2168 ng/mLFEU (0-500)
[2021-04-14] MEDS: Ipratropium 1 PUFF INHALER IH SCH ×6 (03:59→23:24)
[2021-04-14] MEDS ORDERED: Perflutren Lipid Microsphere 1.3 ML in 0.9 % Sodium Chloride 8.7 ML IVP PRN (04:46)
[2021-04-14 05:31] LABS: Activated Partial Thrombo Time 26.7 Seconds (26.0-36.0)
[2021-04-14 05:33] LABS: INR 1.7; Prothrombin Time 19.4 Seconds (9.4-12.1)
[2021-04-14 06:02] LABS: Hemoglobin 16.8 g/dL (12.9-16.9)
[2021-04-14 06:03] LABS: Hematocrit 48.7 % (37.5-50.1); Mean Corpuscular HGB Conc 34.5 g/dL (31.6-35.5); Mean Corpuscular Hemoglobin 29.4 pg (28.0-33.3); Mean Corpuscular Volume 85.1 fL (83.0-100.0); Mean Platelet Volume 11.1 fL (9.4-12.4); Platelet Count 290 K/mcL (140-400); Red Blood Count 5.72 M/mcL (4.19-5.50); Red Cell Distribution Width 13.4 % (11.5-14.5)
[2021-04-14 06:10] LABS: White Blood Count 51.6 K/mcL (4.3-11.1)
[2021-04-14] MEDS: Piperacillin/Tazobactam 3.375 GM in 0.9 % Sodium Chloride Mini Bag 100 ML IVPB SCH ×3 (06:41→22:41)
[2021-04-14] MEDS ORDERED: Heparin 25,000UNIT/250ML 1/2NS 25,000 UNIT/250 ML IV.SOLN IVC SCH ×2 (06:45→09:00)
[2021-04-14 08:51] LABS: ABG Base Excess -2 mEq/L (-2 to 3); ABG HCO3 21 mEq/L (21-27); ABG Oxygen Saturation 91 % (95-98); ABG PCO2 32 mmHg (35-45); ABG PH 7.44 pH Units (7.32-7.45); ABG PO2 58 mmHg (85-104); ABG TCO2 22 mEq/L (20-26); Blood Gas Modality CPAP
[2021-04-14] MEDS ORDERED: *HR* Heparin 5,000 UNIT/ML VIAL IVP PRN ×2 (09:00)
[2021-04-14] MEDS ORDERED: *HR* Heparin 5,000 UNIT/ML VIAL IVP ONE (09:00)
[2021-04-14] MEDS: dexAMETHasone 4 MG TABLET PO SCH (09:15)
[2021-04-14] MEDS: BuPROPion SR (12 HR) 150 MG TABLET PO SCH (09:16)
[2021-04-14] MEDS: Cholecalciferol (D-3) 1,000 UNIT (25MCG) TABLET PO SCH (09:16)
[2021-04-14 09:57] LABS: Bilirubin,Urine Negative (Negative); Blood,Urine Small (Negative); Clarity,Urine Clear (Clear); Color,Urine Light-Yellow (Yellow); Glucose,Urine (UA) >=1000 mg/dL (Normal); Ketones,Urine 10 mg/dL (Negative); Leukocyte Esterase,Urine Negative (Negative); Mucus,Urine Few per lpf (None-Few); Nitrite,Urine Negative (Negative); PH,Urine 5.5 pH Units (5.0-8.0); Protein,Urine Negative (Neg-Trace); Specific Gravity,Urine > 1.030 (1.010-1.025); Urobilinogen,Urine Normal (Normal); WBC,Urine 0-3 per hpf (0-3)
[2021-04-14] MEDS: FentaNYL (PF) 1,000 MCG/100 ML IV.SOLN IVC SCH ×3 (11:00→23:50)
[2021-04-14] MEDS: Dexmedetomidine HCl 400 MCG/100 ML MLS IVC SCH ×2 (11:02→19:53)
[2021-04-14] MEDS: Cisatracurium 200 MG in 0.9 % Sodium Chloride 180 ML IVC SCH ×2 (11:15→20:21)
[2021-04-14] MEDS: Midazolam HCl 50 MG/100 ML IV.SOLN IVC SCH ×2 (11:27→22:52)
[2021-04-14] MEDS ORDERED: Artificial Tears SOLN 15 ML BOTTLE BOTH EYES PRN (12:09)
[2021-04-14 12:57] LABS: ABG Base Excess -6 mEq/L (-2 to 3); ABG HCO3 23 mEq/L (21-27); ABG Oxygen Saturation 88 % (95-98); ABG PCO2 55 mmHg (35-45); ABG PH 7.23 pH Units (7.32-7.45); ABG PO2 66 mmHg (85-104); ABG TCO2 25 mEq/L (20-26); Blood Gas VT 420 cc
[2021-04-14] MEDS ORDERED: 0.9 % Sodium Chloride 1,000 ML ONE (13:31)
[2021-04-14] MEDS: Artificial Tears SOLN 15 ML BOTTLE BOTH EYES SCH ×2 (15:35→21:33)
[2021-04-14] MEDS: Norepinephrine 4 MG/254 ML IV.SOLN IVC SCH ×2 (16:08→20:43)
[2021-04-14 16:25] LABS: Heparin anti-factor XA UFH > 2.00 IU/mL (0.30-0.70)
[2021-04-14] MEDS ORDERED: Dextrose Gel 15 GM/37.5 ML TUBE PO PRN ×2 (17:27)
[2021-04-14] MEDS ORDERED: D5% in Water 1,000 ML IVC PRN (17:27)
[2021-04-14] MEDS ORDERED: *HR* Dextrose 50 % in Water (Vial) 50 ML VIAL IVP PRN (17:27)
[2021-04-14 18:22] LABS: ABG Ionized Calcium 1.11 mmol/L (1.15-1.35)
[2021-04-14 18:40] LABS: Calcium 8.9 mg/dL (8.6-10.3); Magnesium 2.7 mg/dL (1.6-2.6); Phosphorous 10.2 mg/dL (2.7-4.5); Potassium 5.4 mEq/L (3.5-5.1)
[2021-04-14 19:50] LABS: ABG Base Excess -6 mEq/L (-2 to 3); ABG HCO3 21 mEq/L (21-27); ABG Oxygen Saturation 87 % (95-98); ABG PCO2 47 mmHg (35-45); ABG PH 7.26 pH Units (7.32-7.45); ABG PO2 62 mmHg (85-104); ABG TCO2 23 mEq/L (20-26); Blood Gas Modality ASSIST CONTROL; Blood Gas VT 420 cc
[2021-04-14] MEDS ORDERED: Insulin LISPRO 300 UNITS/3 ML VIAL SUBQ SCH (20:00)
[2021-04-14] MEDS ORDERED: Albumin Human 5% 12.5 GM/250 ML IV.SOLN IVPB ONE ×2 (21:02→21:04)
[2021-04-14] MEDS: Chlorhexidine Rinse 15 ML MOUTHWASH MM SCH (21:33)
[2021-04-14] MEDS: Budesonide/Formoterol 160/4.5 1 PUFF INH IH SCH (23:24)
[2021-04-14 23:34] LABS: VBG Ionized Calcium 1.14 mmol/L (1.15-1.35)
[2021-04-14 23:52] LABS: Calcium 8.4 mg/dL (8.6-10.3); Potassium 3.8 mEq/L (3.5-5.1); Troponin I 0.07 ng/mL (< 0.04)
[2021-04-15] MEDS: Norepinephrine 4 MG/254 ML IV.SOLN IVC SCH ×4 (00:03→08:40)
[2021-04-15] MEDS: Artificial Tears SOLN 15 ML BOTTLE BOTH EYES SCH ×6 (00:06→20:10)
[2021-04-15 00:20] LABS: ABG Base Excess -9 mEq/L (-2 to 3); ABG HCO3 19 mEq/L (21-27); ABG Oxygen Saturation 94 % (95-98); ABG PCO2 49 mmHg (35-45); ABG PH 7.21 pH Units (7.32-7.45); ABG PO2 86 mmHg (85-104); ABG TCO2 21 mEq/L (20-26); Blood Gas VT 480 cc
[2021-04-15] MEDS: Heparin 25,000UNIT/250ML 1/2NS 25,000 UNIT/250 ML IV.SOLN IVC SCH (01:05)
[2021-04-15] MEDS: Vasopressin 40 UNIT in D5% in Water 100 ML IVC SCH ×3 (02:18→23:58)
[2021-04-15 03:11] LABS: ABG Base Excess -6 mEq/L (-2 to 3); ABG HCO3 21 mEq/L (21-27); ABG Oxygen Saturation 97 % (95-98); ABG PCO2 42 mmHg (35-45); ABG PO2 98 mmHg (85-104); ABG TCO2 22 mEq/L (20-26); Blood Gas VT 500 cc
[2021-04-15 03:28] LABS: VBG Ionized Calcium 1.09 mmol/L (1.15-1.35)
[2021-04-15 03:33] LABS: Lymphocytes % 1.1 %; Mean Corpuscular HGB Conc 34.7 g/dL (31.6-35.5); Mean Corpuscular Hemoglobin 29.8 pg (28.0-33.3); Mean Platelet Volume 11.4 fL (9.4-12.4)
[2021-04-15 03:34] LABS: Basophils % 0.1 %; Hematocrit 44.1 % (37.5-50.1); Hemoglobin 15.3 g/dL (12.9-16.9); Immature Granulocytes % 3.7 % (0-4); Lymphocytes # 0.5 K/mcL (0.6-4.6); Monocytes # 0.7 K/mcL (0.0-1.3); Monocytes % 1.4 %; Neutrophils # 45.6 K/mcL (1.6-8.9); Platelet Count 309 K/mcL (140-400); Red Blood Count 5.13 M/mcL (4.19-5.50); Red Cell Distribution Width 13.7 % (11.5-14.5); Segmented Neutrophils % 93.7 %
[2021-04-15 03:37] LABS: Basophils # 0.1 K/mcL (0.0-0.2)
[2021-04-15 03:39] LABS: White Blood Count 48.7 K/mcL (4.3-11.1)
[2021-04-15 03:50] LABS: Albumin 3.6 g/dL (3.5-5.7); Albumin/Globulin Ratio 1.6 (1.1-2.2); Bilirubin,Total 2.1 mg/dL (0.3-1.0); Calcium 8.2 mg/dL (8.6-10.3); Globulin 2.2 g/dL (2.4-3.5); Magnesium 2.3 mg/dL (1.6-2.6); Potassium 4.3 mEq/L (3.5-5.1); Total Protein 5.8 g/dL (6.4-8.9)
[2021-04-15] MEDS: Ipratropium 1 PUFF INHALER IH SCH ×6 (04:10→23:49)
[2021-04-15] MEDS: Calcium Gluconate 1gm/50mL 1 GM/50 ML BAG IVPB SCH ×2 (05:20→06:17)
[2021-04-15] MEDS ORDERED: Ringers Solution, Lactated 1,000 ML IVC ONE (06:18)
[2021-04-15] MEDS: Piperacillin/Tazobactam 3.375 GM in 0.9 % Sodium Chloride Mini Bag 100 ML IVPB SCH ×2 (06:18→15:58)
[2021-04-15] MEDS ORDERED: *HR* Dextrose 50 % in Water (Syg) 50 ML SYRINGE IVP PRN (06:45)
[2021-04-15] MEDS: FentaNYL (PF) 1,000 MCG/100 ML IV.SOLN IVC SCH (06:47)
[2021-04-15] MEDS: Budesonide/Formoterol 160/4.5 1 PUFF INH IH SCH ×2 (07:02→20:20)
[2021-04-15 07:58] LABS: Acinetobacter baumannii by PCR Not Detected (Not Detect); Candida albicans by PCR Not Detected (Not Detect); Candida glabrata by PCR Not Detected (Not Detect); Candida krusei by PCR Not Detected (Not Detect); Candida parapsilosis by PCR Not Detected (Not Detect); Candida tropicalis by PCR Not Detected (Not Detect); Enterobacter cloacae Cmplx PCR Not Detected (Not Detect); Enterobacteriaceae by PCR Not Detected (Not Detect); Enterococcus by PCR Not Detected (Not Detect); Escherichia coli by PCR Not Detected (Not Detect); Klebsiella oxytoca by PCR Not Detected (Not Detect); Klebsiella pneumoniae by PCR Not Detected (Not Detect); Proteus by PCR Not Detected (Not Detect); Pseudomonas aeruginosa by PCR Not Detected (Not Detect); Serratia marcescens by PCR Not Detected (Not Detect); Staphylococcus aureus by PCR DETECTED (Not Detect); Streptococcus agalactiae(B)PCR Not Detected (Not Detect); Streptococcus by PCR Not Detected (Not Detect); Streptococcus pneumoniae PCR Not Detected (Not Detect); Streptococcus pyogenes (A) PCR Not Detected (Not Detect); mecA Methicillin-Resist Gene Not Detected (Not Detect)
[2021-04-15] MEDS: Pantoprazole 40 MG VIAL IVP SCH (08:06)
[2021-04-15] MEDS: Cholecalciferol (D-3) 1,000 UNIT (25MCG) TABLET PO SCH (08:06)
[2021-04-15] MEDS: Chlorhexidine Rinse 15 ML MOUTHWASH MM SCH ×2 (08:06→20:04)
[2021-04-15] MEDS ORDERED: Piperacillin/Tazobactam 3.375 GM in 0.9 % Sodium Chloride Mini Bag 100 ML IVPB SCH (08:15)
[2021-04-15] MEDS ORDERED: Vancomycin 1,500 MG/265 ML IV.SOLN IVPB ONE (09:00)
[2021-04-15] MEDS: Midazolam HCl 50 MG/100 ML IV.SOLN IVC SCH ×2 (10:40→20:50)
[2021-04-15] MEDS: Norepinephrine 16 MG in 0.9 % Sodium Chloride 500 ML IVC SCH ×2 (11:00→22:11)
[2021-04-15] MEDS: FentaNYL (PF) 2,500 MCG/50 ML IV.SOLN IVC SCH ×2 (11:40→20:55)
[2021-04-15] MEDS ORDERED: *HR* Phenylephrine 10 MG/ML VIAL ONE (12:35)
[2021-04-15] MEDS ORDERED: *HR* Adenosine 6 MG/2 ML VIAL IVP ONE (12:47)
[2021-04-15 13:17] LABS: ABG Base Excess -14 mEq/L (-2 to 3); ABG HCO3 14 mEq/L (21-27); ABG Oxygen Saturation 73 % (95-98); ABG PCO2 36 mmHg (35-45); ABG PH 7.18 pH Units (7.32-7.45); ABG PO2 48 mmHg (85-104); ABG TCO2 15 mEq/L (20-26); Blood Gas VT 500 cc
[2021-04-15 13:53] LABS: VBG HCO3 17 mEq/L (21-27); VBG Ionized Calcium 1.09 mmol/L (1.15-1.35); VBG PCO2 62 mmHg (41-51); VBG PH 7.05 pH Units (7.32-7.42); VBG PO2 34 mmHg (25-50)
[2021-04-15 13:54] LABS: ABG Base Excess 3 mEq/L (-2 to 3); ABG HCO3 30 mEq/L (21-27); ABG Oxygen Saturation 70 % (95-98); ABG PCO2 59 mmHg (35-45); ABG PH 7.31 pH Units (7.32-7.45); ABG PO2 41 mmHg (85-104); ABG TCO2 32 mEq/L (20-26); Blood Gas VT 550 cc
[2021-04-15] MEDS: Phenylephrine 50 MG in 0.9 % Sodium Chloride 250 ML IVC SCH ×3 (14:00→22:15)
[2021-04-15] MEDS: Dexmedetomidine HCl 400 MCG/100 ML MLS IVC SCH (14:00)
[2021-04-15 14:03] LABS: Albumin 3.4 g/dL (3.5-5.7); Albumin/Globulin Ratio 1.5 (1.1-2.2); Bilirubin,Indirect 1.5 mg/dL (0.0-1.0); Bilirubin,Total 2.5 mg/dL (0.3-1.0); Globulin 2.2 g/dL (2.4-3.5); Magnesium 2.6 mg/dL (1.6-2.6); Phosphorous 7.4 mg/dL (2.7-4.5); Potassium 5.2 mEq/L (3.5-5.1); Total Protein 5.6 g/dL (6.4-8.9); Uric Acid 7.6 mg/dL (2.3-7.6)
[2021-04-15 14:19] LABS: ABG Base Excess -3 mEq/L (-2 to 3); ABG HCO3 23 mEq/L (21-27); ABG Oxygen Saturation 92 % (95-98); ABG PCO2 42 mmHg (35-45); ABG PH 7.35 pH Units (7.32-7.45); ABG PO2 68 mmHg (85-104); ABG TCO2 24 mEq/L (20-26); Blood Gas Modality ASSIST CONTROL; Blood Gas VT 500 cc
[2021-04-15 15:27] LABS: Basophils % 0.4 %; Hemoglobin 14.1 g/dL (12.9-16.9); Mean Platelet Volume 12.3 fL (9.4-12.4); Red Cell Distribution Width 14.1 % (11.5-14.5)
[2021-04-15 15:27] LABS: Hepatitis B Core IgM Nonreactive (Nonreactive); Hepatitis C Virus Antibody Nonreactive (Nonreactive)
[2021-04-15 15:28] LABS: Basophils # 0.2 K/mcL (0.0-0.2); Eosinophils # 0.1 K/mcL (0.0-0.6); Eosinophils % 0.2 %; Hematocrit 41.8 % (37.5-50.1); Immature Granulocytes % 4.5 % (0-4); Lymphocytes # 0.4 K/mcL (0.6-4.6); Mean Corpuscular HGB Conc 33.7 g/dL (31.6-35.5); Mean Corpuscular Volume 88.9 fL (83.0-100.0); Monocytes % 1.5 %; Platelet Count 251 K/mcL (140-400); Segmented Neutrophils % 92.4 %
[2021-04-15 15:29] LABS: Monocytes # 0.7 K/mcL (0.0-1.3)
[2021-04-15 15:29] LABS: Hepatitis A Antibody IgM Nonreactive (Nonreactive)
[2021-04-15 15:32] LABS: White Blood Count 43.3 K/mcL (4.3-11.1)
[2021-04-15 15:40] LABS: Sodium, Urine 25.3 mEq/L
[2021-04-15] MEDS: Sodium Bicarbonate 150 MEQ in Water for inj. (sterile) 1,000 ML IVC SCH ×2 (16:02→22:05)
[2021-04-15 16:12] LABS: Platelet Estimate Normal (Normal)
[2021-04-15 16:15] LABS: Hepatitis B Surface Antigen Nonreactive (Nonreactive)
[2021-04-15] MEDS: Cisatracurium 200 MG in 0.9 % Sodium Chloride 180 ML IVC SCH (17:40)
[2021-04-15] MEDS ORDERED: SODIUM ZIRCONIUM CYCLOSILICATE 5 GM POWD.PACK PO SCH (18:45)
[2021-04-15] MEDS ORDERED: Amiodarone Premix 360 MG/200 ML BAG IVC ONE ×2 (20:18→21:16)
[2021-04-15] MEDS: Amiodarone Premix 360 MG/200 ML BAG IVC SCH (20:30)
[2021-04-15 22:01] LABS: Hematocrit 34.3 % (37.5-50.1); Hemoglobin 12.1 g/dL (12.9-16.9); Lymphocytes # 0.7 K/mcL (0.6-4.6); Mean Corpuscular HGB Conc 35.3 g/dL (31.6-35.5); Mean Corpuscular Hemoglobin 30.3 pg (28.0-33.3); Mean Corpuscular Volume 85.8 fL (83.0-100.0); Mean Platelet Volume 11.8 fL (9.4-12.4); Platelet Count 175 K/mcL (140-400); Red Cell Distribution Width 14.1 % (11.5-14.5)
[2021-04-15 22:08] LABS: White Blood Count 33.2 K/mcL (4.3-11.1)
[2021-04-15 22:17] LABS: Monocytes # 1.3 K/mcL (0.0-1.3); Neutrophils # 31.2 K/mcL (1.6-8.9); Platelet Estimate Normal (Normal)
[2021-04-15 22:35] LABS: ABG Base Excess 2 mEq/L (-2 to 3); ABG HCO3 25 mEq/L (21-27); ABG Oxygen Saturation 92 % (95-98); ABG PCO2 35 mmHg (35-45); ABG PH 7.47 pH Units (7.32-7.45); ABG PO2 59 mmHg (85-104); ABG TCO2 26 mEq/L (20-26); Blood Gas Modality AF; Blood Gas VT 500 cc
[2021-04-15 23:11] LABS: Albumin 2.8 g/dL (3.5-5.7); Albumin/Globulin Ratio 1.9 (1.1-2.2); Bilirubin,Total 2.4 mg/dL (0.3-1.0); Globulin 1.5 g/dL (2.4-3.5); Magnesium 2.2 mg/dL (1.6-2.6); Phosphorous 5.1 mg/dL (2.7-4.5); Potassium 3.9 mEq/L (3.5-5.1); Total Protein 4.3 g/dL (6.4-8.9)
[2021-04-16] MEDS: Dexmedetomidine HCl 400 MCG/100 ML MLS IVC SCH ×3 (00:08→17:30)
[2021-04-16] MEDS: Artificial Tears SOLN 15 ML BOTTLE BOTH EYES SCH ×6 (00:12→21:40)
[2021-04-16] MEDS: Ipratropium 1 PUFF INHALER IH SCH ×6 (03:25→23:54)
[2021-04-16] MEDS: Piperacillin/Tazobactam 3.375 GM in 0.9 % Sodium Chloride Mini Bag 100 ML IVPB SCH ×2 (03:26→16:01)
[2021-04-16 03:28] LABS: Mean Corpuscular Volume 85.6 fL (83.0-100.0)
[2021-04-16 03:29] LABS: Hematocrit 35.2 % (37.5-50.1); Hemoglobin 12.5 g/dL (12.9-16.9); Lymphocytes # 0.7 K/mcL (0.6-4.6); Mean Corpuscular HGB Conc 35.5 g/dL (31.6-35.5); Mean Corpuscular Hemoglobin 30.4 pg (28.0-33.3); Mean Platelet Volume 12.4 fL (9.4-12.4); Platelet Count 175 K/mcL (140-400); Red Blood Count 4.11 M/mcL (4.19-5.50); Red Cell Distribution Width 14.2 % (11.5-14.5)
[2021-04-16 03:50] LABS: Alanine Aminotransferase 467 Units/L (7-52); Albumin 2.6 g/dL (3.5-5.7); Albumin/Globulin Ratio 1.4 (1.1-2.2); Alkaline Phosphatase 73 Units/L (34-104); Aspartate Amino Transferase 622 Units/L (13-39); BUN/Creatinine Ratio 27 (6-26); Bilirubin,Total 2.6 mg/dL (0.3-1.0); Blood Urea Nitrogen 77 mg/dL (8-23); C-Reactive Protein 147 mg/L (Less than 10); Calcium 6.7 mg/dL (8.6-10.3); Carbon Dioxide 26 mEq/L (23-29); Chloride 97 mEq/L (98-107); Globulin 1.8 g/dL (2.4-3.5); Glucose 167 mg/dL (70-105); Lactate Dehydrogenase 756 Units/L (140-271); Osmolality,Calculated 319 (280-300); Potassium 3.8 mEq/L (3.5-5.1); Sodium 141 mEq/L (136-145); Total Protein 4.4 g/dL (6.4-8.9); eGFR For African Americans 27 (> 60); eGFR For Non-African Americans 22 (> 60)
[2021-04-16 03:53] LABS: White Blood Count 33.6 K/mcL (4.3-11.1)
[2021-04-16 04:04] LABS: Fibrinogen 276 mg/dL (169-393)
[2021-04-16 04:09] LABS: D-Dimer 755 ng/mLFEU (0-500)
[2021-04-16] MEDS: Sodium Bicarbonate 150 MEQ in Water for inj. (sterile) 1,000 ML IVC SCH ×2 (04:10→13:14)
[2021-04-16 04:13] LABS: Ferritin > 1500 ng/mL (20-250)
[2021-04-16] MEDS: Cisatracurium 200 MG in 0.9 % Sodium Chloride 180 ML IVC SCH ×2 (04:15→12:30)
[2021-04-16 04:22] LABS: Neutrophils # 32.3 K/mcL (1.6-8.9); Platelet Estimate Normal (Normal); Toxic Granulation Present (Not Present)
[2021-04-16 04:27] LABS: ABG Base Excess 6 mEq/L (-2 to 3); ABG HCO3 29 mEq/L (21-27); ABG Oxygen Saturation 90 % (95-98); ABG PCO2 34 mmHg (35-45); ABG PH 7.53 pH Units (7.32-7.45); ABG PO2 52 mmHg (85-104); ABG TCO2 30 mEq/L (20-26); Blood Gas VT 500 cc
[2021-04-16 05:59] LABS: ABG Ionized Calcium 0.82 mmol/L (1.15-1.35)
[2021-04-16] MEDS: Midazolam HCl 50 MG/100 ML IV.SOLN IVC SCH ×2 (06:00→14:20)
[2021-04-16] MEDS: Phenylephrine 50 MG in 0.9 % Sodium Chloride 250 ML IVC SCH ×2 (06:44→18:32)
[2021-04-16 06:55] LABS: Magnesium 2.1 mg/dL (1.6-2.6); Phosphorous 4.6 mg/dL (2.7-4.5)
[2021-04-16] MEDS: Budesonide/Formoterol 160/4.5 1 PUFF INH IH SCH ×2 (07:01→20:33)
[2021-04-16] MEDS: Pantoprazole 40 MG VIAL IVP SCH (08:08)
[2021-04-16] MEDS: Cholecalciferol (D-3) 1,000 UNIT (25MCG) TABLET PO SCH (08:09)
[2021-04-16] MEDS: Chlorhexidine Rinse 15 ML MOUTHWASH MM SCH ×2 (08:31→21:39)
[2021-04-16] MEDS: Amiodarone Premix 360 MG/200 ML BAG IVC SCH ×2 (08:43→18:53)
[2021-04-16] MEDS: FentaNYL (PF) 2,500 MCG/50 ML IV.SOLN IVC SCH ×2 (08:43→19:24)
[2021-04-16] MEDS ORDERED: Calcium Chloride 2,000 MG in 0.9 % Sodium Chloride 100 ML IVPB ONE (10:41)
[2021-04-16] MEDS: Insulin LISPRO 300 UNITS/3 ML VIAL SUBQ SCH ×3 (13:25→21:39)
[2021-04-16] MEDS: Heparin 25,000UNIT/250ML 1/2NS 25,000 UNIT/250 ML IV.SOLN IVC SCH ×2 (13:26→16:00)
[2021-04-16 14:18] LABS: Albumin 2.5 g/dL (3.5-5.7); Albumin/Globulin Ratio 1.9 (1.1-2.2); Bilirubin,Total 2.4 mg/dL (0.3-1.0); Calcium 6.6 mg/dL (8.6-10.3); Globulin 1.3 g/dL (2.4-3.5); Potassium 3.7 mEq/L (3.5-5.1); Total Protein 3.8 g/dL (6.4-8.9)
[2021-04-16] MEDS ORDERED: Sodium Bicarbonate 150 MEQ in Water for inj. (sterile) 1,000 ML IVC SCH (15:21)
[2021-04-17 00:04] LABS: ABG Base Excess 6 mEq/L (-2 to 3); ABG HCO3 30 mEq/L (21-27); ABG Oxygen Saturation 93 % (95-98); ABG PCO2 40 mmHg (35-45); ABG PH 7.48 pH Units (7.32-7.45); ABG PO2 64 mmHg (85-104); ABG TCO2 31 mEq/L (20-26); Blood Gas VT 400 cc
[2021-04-17] MEDS: Midazolam HCl 50 MG/100 ML IV.SOLN IVC SCH ×3 (00:21→19:42)
[2021-04-17] MEDS: Artificial Tears SOLN 15 ML BOTTLE BOTH EYES SCH ×6 (00:23→20:11)
[2021-04-17] MEDS: Insulin LISPRO 300 UNITS/3 ML VIAL SUBQ SCH ×6 (00:24→21:00)
[2021-04-17] MEDS: Vasopressin 40 UNIT in D5% in Water 100 ML IVC SCH (00:29)
[2021-04-17] MEDS: Cisatracurium 200 MG in 0.9 % Sodium Chloride 180 ML IVC SCH ×3 (01:15→23:51)
[2021-04-17] MEDS: Piperacillin/Tazobactam 3.375 GM in 0.9 % Sodium Chloride Mini Bag 100 ML IVPB SCH ×3 (03:47→22:55)
[2021-04-17] MEDS: Dexmedetomidine HCl 400 MCG/100 ML MLS IVC SCH ×3 (03:48→22:53)
[2021-04-17] MEDS: Ipratropium 1 PUFF INHALER IH SCH ×6 (03:51→23:53)
[2021-04-17 04:11] LABS: ABG Base Excess 10 mEq/L (-2 to 3); ABG HCO3 34 mEq/L (21-27); ABG Oxygen Saturation 93 % (95-98); ABG PCO2 42 mmHg (35-45); ABG PH 7.52 pH Units (7.32-7.45); ABG PO2 60 mmHg (85-104); ABG TCO2 35 mEq/L (20-26); Blood Gas Modality ASSIST CONTROL; Blood Gas VT 400 cc
[2021-04-17 04:27] LABS: VBG Ionized Calcium 0.91 mmol/L (1.15-1.35)
[2021-04-17 04:52] LABS: Hemoglobin 11.6 g/dL (12.9-16.9); Mean Corpuscular Volume 87.2 fL (83.0-100.0); Nucleated Red Blood Cells 0.1 /100 WBC (0); Red Cell Distribution Width 14.6 % (11.5-14.5)
[2021-04-17 04:53] LABS: Basophils # 0.1 K/mcL (0.0-0.2); Basophils % 0.4 %; Eosinophils # 0.2 K/mcL (0.0-0.6); Eosinophils % 0.7 %; Immature Granulocytes % 1.4 % (0-4); Lymphocytes # 0.9 K/mcL (0.6-4.6); Mean Corpuscular HGB Conc 34.1 g/dL (31.6-35.5); Mean Corpuscular Hemoglobin 29.7 pg (28.0-33.3); Mean Platelet Volume 12.4 fL (9.4-12.4); Monocytes % 3.2 %; Neutrophils # 27.8 K/mcL (1.6-8.9); Platelet Count 154 K/mcL (140-400); Segmented Neutrophils % 91.3 %
[2021-04-17] MEDS: Phenylephrine 50 MG in 0.9 % Sodium Chloride 250 ML IVC SCH (04:54)
[2021-04-17 05:01] LABS: INR 1.5; Prothrombin Time 17.3 Seconds (9.4-12.1)
[2021-04-17 05:09] LABS: White Blood Count 30.4 K/mcL (4.3-11.1)
[2021-04-17 05:21] LABS: Albumin 2.3 g/dL (3.5-5.7); Albumin/Globulin Ratio 1.3 (1.1-2.2); Bilirubin,Total 1.9 mg/dL (0.3-1.0); Calcium 6.9 mg/dL (8.6-10.3); Globulin 1.8 g/dL (2.4-3.5); Magnesium 1.9 mg/dL (1.6-2.6); Phosphorous 4.5 mg/dL (2.7-4.5); Potassium 3.3 mEq/L (3.5-5.1); Total Protein 4.1 g/dL (6.4-8.9)
[2021-04-17 05:26] LABS: Albumin 2.3 g/dL (3.5-5.7); Albumin/Globulin Ratio 1.3 (1.1-2.2); Bilirubin,Direct 0.8 mg/dL (0.0-0.2); Bilirubin,Indirect 1.1 mg/dL (0.0-1.0); Bilirubin,Total 1.9 mg/dL (0.3-1.0); Globulin 1.8 g/dL (2.4-3.5); Total Protein 4.1 g/dL (6.4-8.9)
[2021-04-17 05:32] LABS: Platelet Estimate Normal (Normal); Toxic Granulation Present (Not Present)
[2021-04-17] MEDS: Amiodarone Premix 360 MG/200 ML BAG IVC SCH ×2 (05:50→18:24)
[2021-04-17 05:57] LABS: Activated Partial Thrombo Time 68.5 Seconds (26.0-36.0)
[2021-04-17] MEDS ORDERED: Furosemide 40 MG/4 ML VIAL IVP ONE ×2 (06:23→22:38)
[2021-04-17] MEDS: Budesonide/Formoterol 160/4.5 1 PUFF INH IH SCH ×2 (06:46→20:02)
[2021-04-17] MEDS: Albumin Human 5% 12.5 GM/250 ML IV.SOLN IVC SCH ×2 (06:52→10:46)
[2021-04-17] MEDS ORDERED: Calcium Chloride 2,000 MG in 0.9 % Sodium Chloride 100 ML IVPB ONE (07:41)
[2021-04-17] MEDS ORDERED: Potassium Chloride Elixir 20 MEQ/15 ML UDC GTUBE ONE (07:41)
[2021-04-17] MEDS: Chlorhexidine Rinse 15 ML MOUTHWASH MM SCH ×2 (07:51→20:21)
[2021-04-17] MEDS: Cholecalciferol (D-3) 1,000 UNIT (25MCG) TABLET PO SCH (07:52)
[2021-04-17] MEDS: Pantoprazole 40 MG VIAL IVP SCH (07:53)
[2021-04-17] MEDS: FentaNYL (PF) 2,500 MCG/50 ML IV.SOLN IVC SCH ×3 (07:54→18:02)
[2021-04-17] MEDS ORDERED: Insulin DETEMIR 100 UNIT/ML X5UNITS SUBQ ONE (11:00)
[2021-04-17 14:52] LABS: ABG Base Excess 10 mEq/L (-2 to 3); ABG HCO3 35 mEq/L (21-27); ABG Oxygen Saturation 83 % (95-98); ABG PCO2 51 mmHg (35-45); ABG PH 7.45 pH Units (7.32-7.45); ABG PO2 47 mmHg (85-104); ABG TCO2 37 mEq/L (20-26); Blood Gas Modality ASSIST CONTROL; Blood Gas VT 400 cc
[2021-04-17] MEDS ORDERED: Furosemide 20 MG/2 ML VIAL IVP ONE (18:08)
[2021-04-17] MEDS: Norepinephrine 16 MG in 0.9 % Sodium Chloride 500 ML IVC SCH (20:24)
[2021-04-17 20:29] LABS: ABG Base Excess 11 mEq/L (-2 to 3); ABG HCO3 37 mEq/L (21-27); ABG Oxygen Saturation 77 % (95-98); ABG PCO2 59 mmHg (35-45); ABG PO2 43 mmHg (85-104); ABG TCO2 39 mEq/L (20-26); Blood Gas Modality ASSIST CONTROL; Blood Gas VT 400 cc
[2021-04-17 22:32] LABS: Albumin 2.6 g/dL (3.5-5.7); Albumin/Globulin Ratio 1.4 (1.1-2.2); Bilirubin,Total 1.6 mg/dL (0.3-1.0); Calcium 7.5 mg/dL (8.6-10.3); Globulin 1.8 g/dL (2.4-3.5); Potassium 3.4 mEq/L (3.5-5.1); Total Protein 4.4 g/dL (6.4-8.9)
[2021-04-17] MEDS: Insulin DETEMIR 100 UNIT/ML X5UNITS SUBQ SCH (22:54)
[2021-04-18] MEDS: Insulin LISPRO 300 UNITS/3 ML VIAL SUBQ SCH ×4 (00:33→13:02)
[2021-04-18] MEDS: Artificial Tears SOLN 15 ML BOTTLE BOTH EYES SCH ×4 (00:33→13:02)
[2021-04-18] MEDS: Heparin 25,000UNIT/250ML 1/2NS 25,000 UNIT/250 ML IV.SOLN IVC SCH (00:39)
[2021-04-18] MEDS: Vasopressin 40 UNIT in D5% in Water 100 ML IVC SCH (02:55)
[2021-04-18] MEDS: Ipratropium 1 PUFF INHALER IH SCH ×4 (04:11→15:29)
[2021-04-18] MEDS: Midazolam HCl 50 MG/100 ML IV.SOLN IVC SCH (05:04)
[2021-04-18 05:10] LABS: ABG Base Excess 15 mEq/L (-2 to 3); ABG HCO3 42 mEq/L (21-27); ABG Oxygen Saturation 81 % (95-98); ABG PCO2 63 mmHg (35-45); ABG PH 7.43 pH Units (7.32-7.45); ABG PO2 46 mmHg (85-104); ABG TCO2 44 mEq/L (20-26); Blood Gas VT 400 cc
[2021-04-18 05:23] LABS: ABG Base Excess 11 mEq/L (-2 to 3); ABG HCO3 37 mEq/L (21-27); ABG Oxygen Saturation 79 % (95-98); ABG PCO2 60 mmHg (35-45); ABG PO2 45 mmHg (85-104); ABG TCO2 39 mEq/L (20-26); Blood Gas VT 400 cc
[2021-04-18] MEDS: Piperacillin/Tazobactam 3.375 GM in 0.9 % Sodium Chloride Mini Bag 100 ML IVPB SCH (06:06)
[2021-04-18 06:44] LABS: Hematocrit 33.8 % (37.5-50.1); Hemoglobin 11.1 g/dL (12.9-16.9); Mean Corpuscular HGB Conc 32.8 g/dL (31.6-35.5); Mean Corpuscular Hemoglobin 29.2 pg (28.0-33.3); Mean Corpuscular Volume 88.9 fL (83.0-100.0); Mean Platelet Volume 12.2 fL (9.4-12.4); Nucleated Red Blood Cells 0.1 /100 WBC (0); Platelet Count 112 K/mcL (140-400); Red Cell Distribution Width 14.6 % (11.5-14.5); White Blood Count 22.3 K/mcL (4.3-11.1)
[2021-04-18] MEDS: Amiodarone Premix 360 MG/200 ML BAG IVC SCH (06:54)
[2021-04-18] MEDS: FentaNYL (PF) 2,500 MCG/50 ML IV.SOLN IVC SCH (07:05)
[2021-04-18] MEDS: Cholecalciferol (D-3) 1,000 UNIT (25MCG) TABLET PO SCH (07:29)
[2021-04-18] MEDS: Pantoprazole 40 MG VIAL IVP SCH (07:29)
[2021-04-18] MEDS: Chlorhexidine Rinse 15 ML MOUTHWASH MM SCH (07:29)
[2021-04-18] MEDS: Insulin DETEMIR 100 UNIT/ML X5UNITS SUBQ SCH (07:38)
[2021-04-18 07:43] LABS: Albumin 2.7 g/dL (3.5-5.7); Albumin/Globulin Ratio 1.7 (1.1-2.2); Bilirubin,Total 1.5 mg/dL (0.3-1.0); Calcium 7.8 mg/dL (8.6-10.3); Globulin 1.6 g/dL (2.4-3.5); Magnesium 2.1 mg/dL (1.6-2.6); Phosphorous 4.3 mg/dL (2.7-4.5); Potassium 3.3 mEq/L (3.5-5.1); Total Protein 4.3 g/dL (6.4-8.9)
[2021-04-18] MEDS: Budesonide/Formoterol 160/4.5 1 PUFF INH IH SCH (08:06)
[2021-04-18 09:06] LABS: Lymphocytes # 0.5 K/mcL (0.6-4.6); Monocytes # 1.6 K/mcL (0.0-1.3); Neutrophils # 20.3 K/mcL (1.6-8.9); Platelet Estimate Decreased (Normal)
[2021-04-18] MEDS: Dexmedetomidine HCl 400 MCG/100 ML MLS IVC SCH (09:45)
[2021-04-18 11:14] VITALS: BP 88/57
[2021-04-18 11:36] VITALS: PULSE 78
[2021-04-18 12:30] VITALS: TEMP 98.1
[2021-04-18] MEDS ORDERED: *HR* LORazepam 2 MG/ML VIAL ONE (15:15)
[2021-04-18] MEDS ORDERED: Glycopyrrolate 0.2 MG/ML VIAL IVP PRN (15:16)
[2021-04-18 15:38] VITALS: O2SAT 38
[2021-04-18] MEDS ORDERED: *HR* LORazepam 2 MG/ML VIAL IVP ONE (15:42)
== END 2021-04-18 18:33 | disposition expired | DRG 130 ==
LOC: EMEROOARM 18:50 → 3NENU 18:50 → SUATTDRO 23:18 → CDU 04-02 00:28 → SUATTDRO 04-02 12:30 → 2NNU 04-02 22:39 → 3NENU 04-03 18:11 → ICNU 04-14 12:24
PROVIDERS: ADMIT Internal Medicine; ATTEND Pediatrics